=== PATIENT | male | born 1935 | race Caucasian/White ===

== ENCOUNTER 2016-11-03 20:26 | Inpatient (IN) | payer OTHER ==
--- NOTE | 2016-11-03 20:31 | EDPHY ---
H & P HPI/ROS: CHIEF COMPLAINT: Shortness of breath. HISTORY OF PRESENT ILLNESS: The patient is an 81 year old male, brought in by EMS, presenting with shortness of breath for past 4 days. The patient was diagnosed with atrial fibrillation today. He believes he went into atrial fibrillation 4 days ago and has since had shortness of breath. Around 4pm today the patient developed moderate chest discomfort. This pain is localized in the epigastrium and lower left chest. The pain is worse with deep inhalation. Associated with a dry cough. 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 He is on oxygen 2l NC at night. He is not on anticoagulants. Additionally, the patient's notes the patient has been more fatigued than usual over the past 6 weeks. REVIEW OF SYSTEMS: A comprehensive 10 point review of systems is otherwise negative aside from elements mentioned in the history of present illness. Past Medical/Surgical History: DVT, Gout, Anal fistula, Atrial fibrillation. 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 Physical Exam: General Appearance: Alert, pleasant Eyes: Pupils equal and round, no conjunctival pallor or injection ENT, Mouth: Mucous membranes moist Neck: Normal inspection Respiratory: Lungs are clear to auscultation Cardiovascular: Irregularly irregular rate and rhythm Gastrointestinal: Epigastric tenderness and tenderness to left lower anterior ribs Neurological: A&O, nonfocal exam Skin: Warm and dry Extremities: Nontender, no pedal edema Psychiatric: Mood and affect normal Constitutional: Initial Vital Signs Temperature (C) 37.2 C 11/03/16 20:39 Heart Rate 105 H 11/03/16 20:39 Respiratory Rate 16 11/03/16 20:39 Blood Pressure 136/105 H 11/03/16 20:39 O2 Sat (%) 92 11/03/16 20:39 O2 Delivery Mode Nasal Cannula O2 (L/minute) 2 Allergies/Adverse Reactions: loperamide HCl [From Imodium A-D] Allergy (Verified 08/10/16 14:02) Rash onions Allergy (Uncoded 11/03/16 20:38) Home Medications: Medication Instructions Recorded Acetaminophen [Tylenol ES 500 mg 500 mg PO BID 10/28/14 (*)] Psyllium Husk (with Sugar) 1 each PO BID 10/28/14 [Metamucil Packet] Clotrimazole [Mycelex (*)] 10 mg PO 5XD 11/04/16 Herbals/Supplements -Info Only 1 ea PO DAILY 11/04/16 Metoprolol Tartrate [Lopressor 25 12.5 mg PO BID #60 tab 11/06/16 mg (*)] Rivaroxaban [Xarelto 15mg (*)] 15 mg PO BIDMEAL #40 tab 11/06/16 Medical Decision Making - Diagnostics EKG Interpretation: The 12 lead EKG was interpreted by myself. See hard copy and/or "tracemaster" electronic copy for interpretation: Atrial fibrillation, rate 107, no ST/T changes ED Course/Re-evaluation: The patient was brought in by EMS with shortness of breath. The patient was diagnosed with atrial fibrillation today. He has been in atrial fibrillation for the past 4 days and has since been short of breath. The patient is more fatigued than usual. Around 4pm he developed some chest discomfort that is worse with deep inhalation. On exam the patient has epigastric tenderness and left anterior rib tenderness. The patient received 324mg Aspirin PO. HR is ranging between 100 and 125. He received 10mg Diltiazem IV and HR went down to the 90s. The patient has a history of DVT. Plan to check D-dimer, BMP, and BNP. Chest x-ray was ordered. Troponin is pending. X-ray of the chest was obtained. I viewed the images myself on the PACS system. Results: Left lower lobe infiltrate. D-dimer is elevated at 10.43. Plan for CT chest to look for PE. Study: CT of the chest was obtained. I viewed the images myself on the PACS system. See the full radiology report in the imaging section. CT reveals bilateral moderate PE. No pneumonia. Heparin per weight base protocol ordered. Plan to admit. 10:05 p.m. HR has remained in the upper 90s after IV Diltiazem. Will start Diltiazem drip for HR greater than 110. Dr. Joe consulted for admission. The pt remained stable throughout his ED stay. Critical care time of 35 minutes by me exclusive of unbundled procedures. Organs at risk: heart and lung Differential Diagnosis: includes though not limited to pneumonia, ACS, PTX, empyema, pulmonary edema - Data Points Laboratory Results: Laboratory Results 11/04/16 04:10 11/04/16 04:10 Microbiology Results: MICROBIOLOGY 11/03/16 21:55 Blood Blood Culture - Preliminary 11/03/16 21:30 Blood Blood Culture - Preliminary Medications Given: Discontinued Medications Acetaminophen (Tylenol) 650 mg PO Q4HRS PRN PRN Reason: Pain, Mild/Fever, Can Take PO Stop: 05/03/17 00:33 Last Admin: 11/06/16 08:40 Dose: 650 mg Aspirin (Aspirin) 324 mg PO EDNOW ONE Stop: 11/03/16 21:16 Last Admin: 11/03/16 21:35 Dose: 324 mg Clotrimazole (Mycelex) 10 mg PO 5XD RAUL PRN Reason: Protocol Stop: 12/04/16 13:59 Last Admin: 11/06/16 08:42 Dose: 10 mg Diltiazem HCl (Cardizem 25 Mg/5 Ml Vial) 10 mg IVP EDNOW ONE Stop: 11/03/16 21:15 Last Admin: 11/03/16 21:30 Dose: 10 mg Enoxaparin Sodium (Lovenox) 110 mg SC BID [facility] Stop: 05/03/17 10:29 Last Admin: 11/05/16 10:23 Dose: Not Given Heparin Sodium (Porcine) (Heparin Injection) 0 unit IVP EDNOW ONE PRN Reason: Protocol Stop: 11/03/16 22:05 Last Admin: 11/03/16 22:32 Dose: 6,700 units Diltiazem HCl 125 mg/ Dextrose 125 mls @ 0 mls/hr IV EDNOW ONE; As Directed PRN Reason: Protocol Stop: 11/03/16 21:15 Last Admin: 11/03/16 22:09 Dose: Not Given Levofloxacin/Dextrose (Levaquin 750 Mg (Premix)) 150 mls @ 100 mls/hr IV EDNOW ONE PRN Reason: Protocol Stop: 11/03/16 22:45 Last Admin: 11/03/16 22:02 Dose: Not Given Heparin Sodium (Porcine) (Heparin 50 Units/Ml (Premix)) 500 mls @ 0 mls/hr IV EDNOW ONE; Per Protocol PRN Reason: Protocol Stop: 11/03/16 22:05 Last Admin: 11/03/16 22:33 Dose: 500 mls Metoprolol Tartrate (Lopressor) 12.5 mg PO BID [facility] Stop: 05/03/17 10:29 Last Admin: 11/06/16 08:41 Dose: 12.5 mg Psyllium Hydrophilic Mucilloid (Metamucil/Konsyl) 1 each PO BID [facility] Stop: 05/03/17 20:59 Last Admin: 11/06/16 09:12 Dose: Not Given Rivaroxaban (Xarelto) 15 mg PO BIDMEAL [facility] Stop: 05/04/17 09:19 Last Admin: 11/06/16 08:43 Dose: 15 mg Departure - Departure Disposition: [facility] Inpatient Acute Clinical Impression: Rapid atrial fibrillation Pulmonary emboli Qualifiers: Pulmonary embolism type: other Chronicity: acute Acute cor pulmonale presence: without acute cor pulmonale Qualified Code(s): I26.99 - Other pulmonary embolism without acute cor pulmonale Condition: Serious Report Scribed for: Sarah Cutler Report Scribed by: Dona Berkowitz Date of Report: 11/03/16 Time of Report: 20:31 Physician Review and Approval Statement: 11/03/16 20:31 Portions of this note were transcribed by a medical billing and coding instructor. I personally performed the history, physical exam, and medical decision-making; and confirmed the accuracy of the information in the transcribed note.
--- NOTE | 2016-11-03 20:38 | CPEKG ---
Heart Rate: 107 RR Interval: 561 QRSD Interval: 86 QT Interval: 340 QTC Interval: 454 QRS [place]: 27 T Wave [place]: 39 EKG Severity - ABNORMAL ECG - EKG Impression: ATRIAL FIBRILLATION, V-RATE 82-142 Electronically Signed By: Arben Skinner 04-Nov-2016 09:03:01
[2016-11-03 20:47] LABS: % IMMATURE GRANULYOCYTES 0.9 % (0.0-1.1); ABSOLUTE IMMATURE GRANULOCYTES 0.11 10^3/uL (0.00-0.10); ADD DIFF? NO; ADD MORPH? NO; ADD SCAN? NO; ATYPICAL LYMPHOCYTE FLAG 10 (0-99); FRAGMENT RBC FLAG 0 (0-99); HEMATOCRIT 48.9 % (40.0-51.0); HEMOGLOBIN 16.3 g/dL (13.7-17.5); LEFT SHIFT FLG 0 (0-99); LIPEMIA HEMOLYSIS FLAG 80 (0-99); MEAN CELL HEMOGLOBIN 30.8 pg (27.9-34.1); MEAN CELL HEMOGLOBIN CONCENTR. 33.3 g/dL (32.4-36.7); MEAN CELL VOLUME 92.3 fL (81.5-99.8); PLATELET CLUMPS FLAG 0 (0-99); PLATELET COUNT 188 10^3/uL (150-400); RED CELL DISTRIBUTION WIDTH 13.8 % (11.5-15.2)
[2016-11-03 21:01] LABS: ANION GAP 13 mEq/L (8-16); CALCIUM 9.7 mg/dL (8.5-10.4); CARBON DIOXIDE 25 mEq/l (22-31); CHLORIDE 99 mEq/L (97-110); CREATININE 0.9 mg/dL (0.7-1.3); GLOMERULAR FILTRATION RATE > 60; GLUCOSE 129 mg/dL (70-100); SODIUM 137 mEq/L (134-144)
[2016-11-03 21:13] LABS: TROPONIN I < 0.012 ng/mL (0-0.034)
[2016-11-03] MEDS ORDERED: DILTIAZEM 25 MG/5 ML VIAL IVP ONE (21:14)
[2016-11-03] MEDS ORDERED: DILTIAZEM 125 MG in D5W 125 ML IV ONE (21:14)
[2016-11-03] MEDS ORDERED: ASPIRIN 81 MG CHEWABLE TAB PO ONE (21:15)
[2016-11-03] MEDS ORDERED: IOPAMIDOL (ISOVUE 370) 100 ML BTL IV ONE (21:31)
[2016-11-03] MEDS ORDERED: HEPARIN 10,000 UNIT/10 ML MDV IVP ONE (22:04)
[2016-11-03] MEDS ORDERED: HEPARIN/DEXTROSE 500 ML IV ONE (22:04)
[2016-11-03 22:05] LABS: INR 1.32 (0.83-1.16); PROTIME(PATIENT) 16.4 SEC (12.0-15.0)
[2016-11-03 22:06] LABS: APTT 40.2 SEC (23.0-38.0)
[2016-11-03 22:12] LABS: BILIRUBIN,TOTAL 1.3 mg/dL (0.1-1.4)
[2016-11-04] MEDS ORDERED: oxyCODONE IR 5 MG TAB PO PRN (00:34)
[2016-11-04] MEDS ORDERED: ONDANSETRON DISINTEGRATING 4 MG TAB PO PRN (00:34)
[2016-11-04] MEDS ORDERED: ONDANSETRON 4 MG/2 ML VIAL IVP PRN (00:34)
[2016-11-04] MEDS ORDERED: HEPARIN 10,000 UNIT/10 ML MDV IVP PRN (00:38)
[2016-11-04] MEDS ORDERED: HEPARIN/DEXTROSE 500 ML IV SCH (01:00)
--- NOTE | 2016-11-04 03:25 | PDGENHP ---
History and Physical - Chief Complaint shortness of breath - History of Present Illness Patient is an 81-year-old male with history TALIB ITP and gout and previous history of DVT after right hip replacement (no longer on anticoagulation) who presents the ED with complaint of shortness of breath and chest pain. Patient states shortness of breath started about 4 days ago, was sudden onset, not associated with significant cough or congestion. His sensation of dyspnea progressed over the following days, became associated with generalized fatigue and on day of presentation patient developed pleuritic epigastric/left-sided chest pain. In addition patient noted palpitations throughout his symptom onset , not associated with headache, dizziness or lightheadedness. On arrival to the ED patient was noted to be tachycardic and hypoxic, with stable BP. EKG revealed AFib, new. Labs revealed mild leukocytosis, negative troponin, significantly elevated D-dimer. Chest x-ray showed possible left lower lobe pneumonia versus infiltrate, so patient was cultured initiated on antibiotics. CT angio was then obtained and showed moderate volume bilateral pulmonary emboli. Patient was initiated on heparin drip and admitted to the hospitalist service for further management. History Information - Allergies/Home Medication List Allergies/Adverse Reactions: loperamide HCl [From Imodium A-D] Allergy (Verified 08/10/16 14:02) Rash onions Allergy (Uncoded 11/03/16 20:38) Home Medications: Heparin 10/28/14 [Last Taken Unknown] Tylenol 10/28/14 [Last Taken Unknown] I have personally reviewed and updated: family history, medical history, social history, surgical history - Past Medical History Additional medical history: TALIB with chronic respiratory failure at night. Macular degeneration. Previous history of ITP. Gout. 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 Lives with his , uses a cane for ambulation. Review of Systems ROS: 10pt was reviewed & negative except for what was stated in HPI & below Physical Exam Temp Pulse Resp BP Pulse Ox 36.8 C 110 H 20 127/65 H 92 11/03/16 23:02 11/03/16 23:02 11/03/16 23:02 11/03/16 23:02 11/03/16 23:02 O2 (L/minute) 2 Constitutional: no apparent distress, appears nourished, not in pain Eyes: PERRL, anicteric sclera, EOMI Ears, Nose, Mouth, Throat: moist mucous membranes, hearing normal, ears appear normal, no oral mucosal ulcers Cardiovascular: irregularly irregular, pulses symmetric bilaterally, tachycardia , edema (Asymmetric right lower extremity), No JVD Peripheral Pulses: 2+: dorsalis-pedis (R), dorsalis-pedis (L) Respiratory: no respiratory distress, no rales or rhonchi, clear to auscultation Gastrointestinal: normoactive bowel sounds, soft, non-tender abdomen, no palpable masses, No guarding, No rebound, No distension Genitourinary: no bladder fullness, no bladder tenderness Skin: warm, normal color, no rashes or abrasions, no fluctuance, No mottled Musculoskeletal: full muscle strength, no muscle tenderness, normal joint ROM, no joint effusions Neurologic: AAOx3, sensation intact bilaterally, CN II-XII Intact, No weakness, No numbness, No facial droop Psychiatric: interacting appropriately, not anxious, not encephalopathic, thought process linear Lab Data & Imaging Review 11/03/16 20:30 11/03/16 20:30 WBC 12.88 10^3/uL (3.80-9.50) H 11/03/16 20:30 RBC 5.30 10^6/uL (4.40-6.38) 11/03/16 20:30 Hgb 16.3 g/dL (13.7-17.5) 11/03/16 20:30 Hct 48.9 % (40.0-51.0) 11/03/16 20:30 MCV 92.3 fL (81.5-99.8) 11/03/16 20:30 MCH 30.8 pg (27.9-34.1) 11/03/16 20:30 MCHC 33.3 g/dL (32.4-36.7) 11/03/16 20:30 RDW 13.8 % (11.5-15.2) 11/03/16 20:30 Plt Count 188 10^3/uL (150-400) 11/03/16 20:30 MPV 12.0 fL (8.7-11.7) H 11/03/16 20:30 Neut % (Auto) 70.3 % (39.3-74.2) 11/03/16 20:30 Lymph % (Auto) 19.6 % (15.0-45.0) 11/03/16 20:30 [place] % (Auto) 7.9 % (4.5-13.0) 11/03/16 20:30 Eos % (Auto) 1.0 % (0.6-7.6) 11/03/16 20:30 Baso % (Auto) 0.3 % (0.3-1.7) 11/03/16 20:30 Nucleat RBC Rel Count 0.0 % (0.0-0.2) 11/03/16 20:30 Absolute Neuts (auto) 9.06 10^3/uL (1.70-6.50) H 11/03/16 20:30 Absolute Lymphs (auto) 2.52 10^3/uL (1.00-3.00) 11/03/16 20:30 Absolute Monos (auto) 1.02 10^3/uL (0.30-0.80) H 11/03/16 20:30 Absolute Eos (auto) 0.13 10^3/uL (0.03-0.40) 11/03/16 20:30 Absolute Basos (auto) 0.04 10^3/uL (0.02-0.10) 11/03/16 20:30 Absolute Nucleated RBC 0.00 10^3/uL (0-0.01) 11/03/16 20:30 Immature Gran % 0.9 % (0.0-1.1) 11/03/16 20:30 Immature Gran # 0.11 10^3/uL (0.00-0.10) H 11/03/16 20:30 PT 16.4 SEC (12.0-15.0) H 11/03/16 20:30 INR 1.32 (0.83-1.16) H 11/03/16 20:30 APTT 40.2 SEC (23.0-38.0) H 11/03/16 20:30 D-Dimer 10.43 ug/mLFEU (0.00-0.50) H 11/03/16 20:30 VBG Lactic Acid 1.7 mmol/L (0.7-2.1) 11/03/16 23:19 Sodium 137 mEq/L (134-144) 11/03/16 20:30 Potassium 4.0 mEq/L (3.5-5.2) 11/03/16 20:30 Chloride 99 mEq/L (97-110) 11/03/16 20:30 Carbon Dioxide 25 mEq/l (22-31) 11/03/16 20:30 Anion Gap 13 mEq/L (8-16) 11/03/16 20:30 BUN 14 mg/dL (7-23) 11/03/16 20:30 Creatinine 0.9 mg/dL (0.7-1.3) 11/03/16 20:30 Estimated GFR > 60 11/03/16 20:30 Glucose 129 mg/dL (70-100) H 11/03/16 20:30 Calcium 9.7 mg/dL (8.5-10.4) 11/03/16 20:30 Total Bilirubin 1.3 mg/dL (0.1-1.4) 11/03/16 20:30 Troponin I < 0.012 ng/mL (0-0.034) 11/03/16 20:30 NT-Pro-B Natriuret Pep 873 pg/mL (0-450) H 11/03/16 20:30 Visualized and Interpreted Chest x-ray results: Yes Chest X-Ray results: infiltrate (Left lower lobe) Visualized and Interpreted imaging results: Yes Interpretation: CT angio: bilateral moderate volume pulmonary emboli, with likely LLL pulmonary infarct Visualized and Interpreted EKG results: Yes EKG additional interpertation: Afib without ischemic changes Assessment & Plan Assessment: Is an 81-year-old man with a history of previous DVT, who presents to the ED with acute onset shortness of breath and palpitations 4 days ago, ED workup reveals new onset AFib and bilateral acute pulmonary emboli. Plan: # acute pulmonary emboli Patient does not recall any provoking causes, but does have asymmetric RLE edema on exam. He was moderately tachycardic on presentation, but remains hemodynamically stable. CT angio shows moderate volume bilateral emboli without evidence of enlarged RV and negative initial troponin. O2 sats are also stable on 2L NC. Patient was initiated on heparin drip in ED and requests more time to assess coumadin vs NOACs for long-term anticoagulation. Will check TTE,continue to monitor troponins and check lower extremity dopplers to assess for source of embolism. # new onset afib Patient denies previous diagnosis of Afib. Possible provoked by pulmonary embolism. Rate has stabilized with one dose of Diltiazem 10 mg IVP. Will cont to monitor rate, if needed will start PO rate controlling meds. # leukocytosis Likely reactive in setting of acute PE, as patient denies any infectious symptoms. Will hold antibiotics and cont to monitor CBC. # Gout Patient is complaining of mild-mod L great toe pain and it does appear inflamed on exam. Will try to avoid NSAIDs given the initiation of systemic anticoagulation. Will treat pain with tylenol, consider adding prednisone or colchicine if needed acutely. # macular degeneration Stable. Cont home meds once confirmed. # dispo: admit to observation status # gen: Cardiac diet DVT ppx: on heparin gtt Full Code
[2016-11-04 04:31] LABS: COLOR YELLOW; LEUKOCYTE ESTERASE,URINE NEGATIVE (NEGATIVE); NITRITE,URINE NEGATIVE (NEGATIVE)
[2016-11-04 04:37] LABS: % IMMATURE GRANULYOCYTES 0.8 % (0.0-1.1); ADD DIFF? NO; ADD MORPH? NO; ADD SCAN? NO; ATYPICAL LYMPHOCYTE FLAG 10 (0-99); FRAGMENT RBC FLAG 0 (0-99); HEMATOCRIT 45.6 % (40.0-51.0); LEFT SHIFT FLG 0 (0-99); LIPEMIA HEMOLYSIS FLAG 80 (0-99); MEAN CELL HEMOGLOBIN 30.4 pg (27.9-34.1); MEAN CELL HEMOGLOBIN CONCENTR. 32.9 g/dL (32.4-36.7); MEAN CELL VOLUME 92.5 fL (81.5-99.8); PLATELET CLUMPS FLAG 20 (0-99); PLATELET COUNT 180 10^3/uL (150-400); RED BLOOD CELL COUNT 4.93 10^6/uL (4.40-6.38)
[2016-11-04 04:47] LABS: INR 1.55 (0.83-1.16); PROTIME(PATIENT) 18.6 SEC (12.0-15.0)
[2016-11-04 04:55] LABS: ANION GAP 12 mEq/L (8-16); CALCIUM 9.3 mg/dL (8.5-10.4); CARBON DIOXIDE 21 mEq/l (22-31); CHLORIDE 103 mEq/L (97-110); CREATININE 0.8 mg/dL (0.7-1.3); GLOMERULAR FILTRATION RATE > 60; GLUCOSE 110 mg/dL (70-100); POTASSIUM 4.2 mEq/L (3.5-5.2); SODIUM 136 mEq/L (134-144)
[2016-11-04 05:02] LABS: TROPONIN I < 0.012 ng/mL (0-0.034)
[2016-11-04 05:17] LABS: APTT 158.9 SEC (23.0-38.0)
--- NOTE | 2016-11-04 08:47 | CPEKG ---
Heart Rate: 102 RR Interval: 588 QRSD Interval: 84 QT Interval: 356 QTC Interval: 464 QRS [place]: 21 T Wave [place]: 18 EKG Severity - ABNORMAL ECG - EKG Impression: ATRIAL FIBRILLATION, V-RATE 81-129 EKG Impression: BORDERLINE T ABNORMALITIES, ANTERIOR LEADS Electronically Signed By: Arben Skinner 04-Nov-2016 09:03:15
[2016-11-04] MEDS: ACETAMINOPHEN 325 MG TAB PO PRN (09:09)
--- NOTE | 2016-11-04 10:22 | ECHO ---
[id number] + + [address] : : [place] [address] : : [phone] + + Adult Echocardiographic Report + -------+ :Name: SEGUNDO MOHR Edwin Date: 11/04/2016 08:03 AM : : Hospital Admission Number: [id number] Locati on: 217: :: 1935 Gender: Male Height: 73 in : :Age: 81 yrs Race: WH Weight: 245 lb : :Reason For Study: Eval LV/RV Function : : BSA: 2.3 meter s2 : :History: PE, Heart Strain : + -------+ MMode/2D Measurements \T\ Calculations IVSd: 0.89 cm RVDd: 5.2 cm FS: 46.6 % Ao root diam: 3.0 cm LVPWd: 1.0 cm LVIDd: 4.7 cm EDV(Teich): 102.1 ml ACS: 0.81 cm LVIDs: 2.5 cm ESV(Teich): 22.4 ml EF(Teich): 78.0 % Normal Measurement Values: + + :LVIDd (3.5-5.7cm) IVSd (0.6-1.1cm) LVPWd (0.6-1.1cm) Aortic Root (2.0-3.7cm)Left Atrium (1.5-4.0cm): :LV Vol(d) (76-115ml) LV Vol(s) (29-48ml) Ejec Fraction (50-65%)PV Yung (0.6- 1.2m/s) TV Yung (0.4-1.0m/s) : :MV E Yung (0.8-1.0m/s)MV A Yung (0.3-1.0m/s)LVOT Yung (0.7-1.2m/s) Asc Ao Yung ( 0.9-1.8m/s) : + + Doppler Measurements \T\ Calculations MV E max yung: Ao V2 max: LV V1 max: PA V2 max: 81.4 cm/sec 107.2 cm/sec 78.0 cm/sec 99.1 cm/sec Ao max P.6 mmHgLV V1 max PG: PA max P.4 mmHg 3.9 mmHg PI end-d yung: TR max yung: 123.5 cm/sec 335.3 cm/sec TR max P.0 mmHg RAP systole: 5.0 mmHg RVSP(TR): 50.0 mmHg Left Ventricle The left ventricle is normal in size. There is normal left ventricular wall thickness. The left ventricular ejection fraction is normal. The thythm is atrial fibrillation. The left ventricular wall motion is normal. Right Ventricle The right ventricle is mildly dilated. The right ventricular systolic function is mildly reduced. Atria The left atrial size is normal. Right atrial size is normal. Mitral Valve The mitral valve is normal in structure and function. There is no evidence of mitral valve prolapse. There is no mitral valve stenosis. There is trace mitral regurgitation. Tricuspid Valve There is mild tricuspid regurgitation. Right ventricular systolic pressure is 50mmHg. There is Doppler evidence for moderate pulmonary hypertension. Aortic Valve The aortic valve is trileaflet. There is mild aortic valve calcification. There is no aortic stenosis. There is no aortic insufficiency. Pulmonic Valve The pulmonic valve is normal in structure and function. Trace pulmonic valvular regurgitation. Great Vessels The aortic root is normal size. Pericardium/Pleural There is no pericardial effusion. Conclusion A complete two-dimensional transthoracic echocardiogram was performed (2D, M-mode, Doppler and color flow Doppler). The thythm is atrial fibrillation. The left ventricular ejection fraction is normal. The left ventricular wall motion is normal. The right ventricle is mildly dilated. RV systolic function is mildly reduced The left atrial size is normal. Right atrial size is normal. The mitral valve is normal in structure and function. There is trace mitral regurgitation. There is mild tricuspid regurgitation. Right ventricular systolic pressure is 50mmHg. There is Doppler evidence for moderate pulmonary hypertension. The aortic valve is trileaflet. There is mild aortic valve calcification. There is no aortic insufficiency. Trace pulmonic valvular regurgitation. There is no pericardial effusion. No prior echo Final Reading Physician: Dr Brittny Miller electronically signed on 11/04/2016 10:20 AM Ordering Physician: Kacey Joe Performed By: Terence Hager, BELLCS
--- NOTE | 2016-11-04 10:24 | HOSPPROG ---
Hospitalist Progress Note Assessment/Plan: # acute PE - heparin gtt, change to lovenox today - son is heme/onc MD and flying in today - would likely prefer NOAC - echo pending # a-fib - new dx, d/t PE - AC as above - low dose metop - he may convert with tx of PE, if not consider cardiac consult for ? cardioversion # abd pain - epigastric - does not seem related to PE - check CT abd - may be a ventral hernia # gout - not terribly acute, follow # hx ITP, decades ago - treated with steroids - follow plts on AC # FCFT ## chart reviewed CT personally reviewed Subjective: ongoing abd pain; L chest pain better Objective: Vital Signs Temp Pulse Resp BP Pulse Ox 36.6 C 93 21 H 125/77 H 97 11/04/16 08:41 11/04/16 08:41 11/04/16 08:41 11/04/16 08:41 11/04/16 08:41 Laboratory Results 11/04/16 04:10 11/04/16 04:10 11/03/16 11/04/16 11/05/16 05:59 05:59 05:59 Intake Total 485 200 Output Total 225 Balance 260 200 PT 18.6 SEC (12.0-15.0) H 11/04/16 04:16 INR 1.55 (0.83-1.16) H 11/04/16 04:16 - Physical Exam Constitutional: no apparent distress, appears nourished Cardiovascular: regular rate and rhythym, no murmur, rub, or gallop Respiratory: no respiratory distress, no rales or rhonchi, clear to auscultation Gastrointestinal: normoactive bowel sounds, other (TTP epigastic, no masses appreciated, no guarding) ICD10 Worksheet Patient Problems: Problems Problem Status Onset Pulmonary emboli Acute Rapid atrial fibrillation Acute
[2016-11-04] MEDS: METOPROLOL TARTRATE 25 MG TAB PO SCH ×2 (12:11→20:12)
[2016-11-04] MEDS: ENOXAPARIN 120 MG/0.8 ML SYR SC SCH ×2 (12:11→20:13)
[2016-11-04] MEDS: CLOTRIMAZOLE 10 MG TROCHE PO SCH ×3 (18:37→20:14)
[2016-11-04] MEDS: PSYLLIUM METAMUCIL 1 PKT PO SCH (20:13)
[2016-11-05] MEDS: ACETAMINOPHEN 325 MG TAB PO PRN ×3 (03:59→19:31)
[2016-11-05 04:47] LABS: % IMMATURE GRANULYOCYTES 0.5 % (0.0-1.1); ABSOLUTE IMMATURE GRANULOCYTES 0.07 10^3/uL (0.00-0.10); ADD DIFF? NO; ADD MORPH? NO; ADD SCAN? NO; ATYPICAL LYMPHOCYTE FLAG 0 (0-99); FRAGMENT RBC FLAG 0 (0-99); HEMATOCRIT 43.3 % (40.0-51.0); HEMOGLOBIN 14.5 g/dL (13.7-17.5); LEFT SHIFT FLG 0 (0-99); LIPEMIA HEMOLYSIS FLAG 80 (0-99); MEAN CELL HEMOGLOBIN 30.6 pg (27.9-34.1); MEAN CELL HEMOGLOBIN CONCENTR. 33.5 g/dL (32.4-36.7); MEAN CELL VOLUME 91.4 fL (81.5-99.8); MEAN PLATELET VOLUME 11.8 fL (8.7-11.7); PLATELET CLUMPS FLAG 10 (0-99); PLATELET COUNT 184 10^3/uL (150-400); RED BLOOD CELL COUNT 4.74 10^6/uL (4.40-6.38)
[2016-11-05 04:57] LABS: ALANINE AMINOTRANSFERASE 39 IU/L (21-72); ALBUMIN 3.5 g/dL (3.5-5.0); ALKALINE PHOSPHATASE 72 IU/L (38-126); ANION GAP 12 mEq/L (8-16); ASPARTATE AMINOTRANSFERASE 27 IU/L (17-59); BILIRUBIN,TOTAL 1.6 mg/dL (0.1-1.4); CARBON DIOXIDE 21 mEq/l (22-31); CHLORIDE 102 mEq/L (97-110); CREATININE 0.7 mg/dL (0.7-1.3); GLOMERULAR FILTRATION RATE > 60; GLUCOSE 135 mg/dL (70-100); SODIUM 135 mEq/L (134-144); TOTAL PROTEIN 7.1 g/dL (6.3-8.2)
[2016-11-05] MEDS: CLOTRIMAZOLE 10 MG TROCHE PO SCH ×5 (06:02→21:18)
--- NOTE | 2016-11-05 09:22 | HOSPPROG ---
Hospitalist Progress Note Assessment/Plan: 81 y/o male new to my care today with: # acute PE - start xarelto today # a-fib - new dx, d/t PE vs chronic (rate controlled) - AC as above - continue low dose metop - I discussed the case with Dr. Miller who will see him in consultation later today # abd pain (improving) - check CT abd reviewed showing periumbilical subq edema ? d/t lovenox? # gout - not terribly acute, follow # hx ITP, decades ago - treated with steroids - follow plts on AC # FCFT ## chart reviewed dispo: likely dc 11/06 if continues to improve Subjective: improving sob. no palpitations. improving abd pain. not feeling well enough to dc home today Objective: Vital Signs Temp Pulse Resp BP Pulse Ox 36.6 C 94 20 110/75 94 11/05/16 07:06 11/05/16 07:06 11/05/16 07:06 11/05/16 07:06 11/05/16 07:06 Laboratory Results 11/05/16 04:16 11/05/16 04:16 11/04/16 11/05/16 11/06/16 05:59 05:59 05:59 Intake Total 1130 Output Total 875 Balance 255 PT 18.6 SEC (12.0-15.0) H 11/04/16 04:16 INR 1.55 (0.83-1.16) H 11/04/16 04:16 - Physical Exam Constitutional: no apparent distress, appears nourished, not in pain Cardiovascular: no murmur, rub, or gallop, irregularly irregular, No edema Respiratory: no respiratory distress, no rales or rhonchi, clear to auscultation , No rhonchi Gastrointestinal: normoactive bowel sounds, soft, non-tender abdomen, no palpable masses, other (periumbilical edema not reducible), No guarding, No rebound Neurologic: AAOx3, sensation intact bilaterally, CN II-XII Intact, No facial droop ICD10 Worksheet Patient Problems: Problems Problem Status Onset Pulmonary emboli Acute Rapid atrial fibrillation Acute
[2016-11-05] MEDS: METOPROLOL TARTRATE 25 MG TAB PO SCH ×2 (09:30→21:18)
[2016-11-05] MEDS: PSYLLIUM METAMUCIL 1 PKT PO SCH ×2 (09:31→19:39)
[2016-11-05] MEDS: RIVAROXABAN 15 MG TAB PO SCH ×2 (10:22→17:33)
[2016-11-05] MEDS: ENOXAPARIN 120 MG/0.8 ML SYR SC SCH (10:23)
--- NOTE | 2016-11-05 14:14 | GCON ---
[f rep st] CONSULTATION CARDIOLOGY CONSULTATION DATE OF CONSULTATION: 11/05/2016 CHIEF COMPLAINT: Atrial fibrillation. HISTORY OF PRESENT ILLNESS: We were asked by Dr. Philippe to visit with the patient. The patient is a pleasant 81-year-old male with no prior known cardiac history other than possible TIA in the past. He has never been told about any sort of arrhythmia. He has no coronary disease or any history of heart failure. He does have a history of previous DVT after hip replacement therapy. He was admitted to the hospital on November 03 with dyspnea and pleuritic chest pain. He was found to have moderate volume pulmonary emboli and has been started on Xarelto. He was found to have a righ t popliteal vein DVT. Upon admission, he was noted to be in atrial fibrillation. Upon my evaluation today, he states he is still mildly dyspneic but overall feels quite a bit better . He has not had anginal quality chest pain. He denies a history of presyncope or syncope. He mak s not notice palpitations. He did not appreciate any lower extremity swelling prior to his admissio n. He is having ongoing issues with abdominal pain during his hospital stay. ALLERGIES: Loperamide. PAST MEDICAL HISTORY: 1. New diagnosis paroxysmal atrial fibrillation, unknown duration. 2. Possible TIA in the past. 3. Sleep apnea. 4. Pulmonary nodules. 5. 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 6. Gout. 7. ITP. 8. Macular degeneration. 9. Status post hip replacement. MEDICATIONS: Tylenol, clotrimazole, herbal supplements, psyllium, and Metamucil. 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 He does not smoke cigarettes or drink alc ohol. FAMILY HISTORY: Both parents lived into their old age. PHYSICAL EXAM: VITAL SIGNS: Blood pressure 124/82, heart rate 82, oxygen saturation 94% on 2 L, af ebrile. GENERAL: Well-appearing older male in no acute distress. HEENT: Sclerae are clear and fr ee of jaundice. Mucous members are moist. CARDIOVASCULAR: JVP less than 10. Irregularly irregula r rhythm. No murmur. No S3. LUNGS: Clear to auscultation bilaterally without wheezes, rhonchi, o r rales. ABDOMEN: Soft but diffusely tender, and more tender in the right upper quadrant and periu mbilical region. No obvious masses. No obvious bruit. EXTREMITIES: Warm and well perfused with t race bilateral ankle edema. He does have varicose veins and stigmata of chronic venous insufficienc y in the right lower extremity. NEURO: Alert and oriented x3 without gross focal neurological defi cits. LABORATORY TESTS: White count 13, hematocrit 43, and platelets are 184. INR 1.5 on this admission. D-dimer was 10.4. Venous lactic acid was 1.7 upon admission. Sodium 135, potassium 4.0, chloride 102, bicarb 21, BUN 12, creatinine 0.7, glucose 135. Troponin negative x2. BNP 873. TSH is oswaldo l. Urinalysis with 1+ blood and only 1-3 red cells. EKG reviewed by me shows rate controlled atrial fibrillation with minimal lateral ST depression. Chest x-ray reviewed by me shows an infiltrate in the left lower lobe. Chest CT shows moderate volume PE. Echocardiogram reviewed by me: Normal LV size and systolic function. No LV wall motion abnormaliti es. The right ventricle is mildly dilated. RV systolic function is mildly reduced. Mild tricuspid regurgitation with an estimated PA pressure of 50. ASSESSMENT AND PLAN: An 81-year-old male with new diagnosis of atrial fibrillation in the setting o f pulmonary emboli. The duration of his atrial fibrillation is not known. He is not in heart failu re. No evidence of cardiac ischemia. TSH normal. His atrial fibrillation may have been triggered by his pulmonary embolism. 1. Atrial fibrillation: Rate controlled on low-dose metoprolol. He is on Xarelto for his PE. Cou ld consider outpatient cardioversion once he has been appropriately anticoagulated for 4-6 weeks. H e can follow up in our office in 2 weeks to discuss. No indication for acute cardioversion at this time. 2. Pulmonary embolism: This may have been related to a DVT on the same side as his previous DVT an d then ultimately PE. He is appropriately anticoagulated. He does have some mild RV strain on echo . He also has moderate pulmonary hypertension. Hopefully these parameters will improve. Could con dean of girls a repeat echocardiogram in 6 months. 3. Sleep apnea: He states that he is on nocturnal oxygen therapy. It would be worth a reevaluatio n of his sleep-disordered breathing as an outpatient, as under treated sleep-disordered breathing ca n contribute to atrial fibrillation. 4. History of ITP: Platelets are currently normal. Thank you for allowing us to participate in the patient's care. We will sign off for now as he is o n appropriate medical therapy and no further cardiac interventions are planned for this admission. Follow up as detailed above. /[id number]/MODL
[2016-11-06 04:12] VITALS: TEMP 99.4
[2016-11-06] MEDS: CLOTRIMAZOLE 10 MG TROCHE PO SCH ×2 (06:07→08:42)
[2016-11-06] MEDS: ACETAMINOPHEN 325 MG TAB PO PRN (08:40)
[2016-11-06] MEDS: METOPROLOL TARTRATE 25 MG TAB PO SCH (08:41)
[2016-11-06] MEDS: RIVAROXABAN 15 MG TAB PO SCH (08:43)
[2016-11-06] MEDS: PSYLLIUM METAMUCIL 1 PKT PO SCH (09:12)
[2016-11-06 10:02] VITALS: BP 129/89; PULSE 103; RESP 20; O2SAT 93
--- NOTE | 2016-11-06 10:15 | GDS ---
[f rep st] DISCHARGE SUMMARY DISCHARGE DIAGNOSES: 1. Acute pulmonary embolism. 2. Newly diagnosed atrial fibrillation. 3. Improving abdominal pain. 4. Gout. 5. History of ITP. CONSULTANTS: Dr. Brittny Miller, [facility]. HOSPITAL COURSE BY PROBLEM: Acute pulmonary embolism: Patient presented to the hospital on 017 with shortness of breath. His shortness of breath started 4 days prior to presentation. CT ang io of the chest on admission revealed moderate volume bilateral pulmonary emboli with consolidation of the left base. He was initially started on IV unfractionated heparin and was transitioned to low molecular weight heparin. On the morning of 11/05/2016, low-molecular weight heparin was stopped a nd he was started on Xarelto. Prior to starting Xarelto, the risks and benefits of the w as explained to the patient. The patient understands that Xarelto does not have a reversibility age nt but would still like to proceed with treatment due to convenience and effectiveness. On day of discharge, the patient states his breathing is near baseline. He is continuing to have so me abdominal pain. A CT of the abdomen was done on the sixth that revealed a left periumbilical sub cutaneous area of edema which I suspect was due to a Lovenox injection. On day of discharge, he con tinues to have some nonspecific abdominal pain but he is tolerating a regular diet and is moving his bowels. His H and H are currently pending at the time of discharge. Atrial fibrillation: The patient presented to the hospital in atrial fibrillation which I am not christina re if it is new or not since the patient appears to be asymptomatic. An echocardiogram done on the sixth demonstrates a normal left ventricular ejection fraction. There is evidence for elevated righ t ventricular systolic pressures of 50 mmHg with Doppler evidence for moderate pulmonary hypertensio n. The patient was seen by Dr. Miller from [facility]. Did not recommend cardioversion. S he is in agreement with low-dose metoprolol that was started as well as anticoagulation. He should be seen in followup at [facility]. PHYSICAL EXAMINATION ON DAY OF DISCHARGE: VITAL SIGNS: Blood pressure 115/65, pulse of 88, respira tory rate 19, O2 saturation 97% on room air. Temperature afebrile. GENERAL: No acute distress. H EART: S1, S2. LUNGS: Clear. ABDOMEN: Soft. There is no guarding or rebound tenderness. There is some superficial tenderness in the left upper and lower quadrants. No obvious masses. DIAGNOSTICS ON THIS HOSPITAL STAY: Echocardiogram done 11/04/2016, refer to report. CT angiogram o f the chest done 11/03/2016, refer to report. DISCHARGE MEDICATIONS: Please refer to discharge medication reconciliation in [facility] for full det ails. Below is a preliminary list. New medications on hospital discharge: Xarelto 15 mg p.o. twice daily to complete 21 days then to b e transitioned to 20 mg daily thereafter, metoprolol 12.5 mg p.o. twice daily. All other home medications were continued as usual home dosages. DISCHARGE INSTRUCTIONS: The patient will be discharged home where he was instructed to follow up wi th his primary care provider next week as well as with Dr. Miller from [facility] as rec ommended. He should seek medical attention if he has any signs of bleeding. He was also instructed to seek medical attention if his abdominal pain worsens. Greater than 30 minutes were spent on the discharge of this patient. /[id number]/MODL
[2016-11-06 10:24] LABS: HEMATOCRIT 43.2 % (40.0-51.0); HEMOGLOBIN 14.5 g/dL (13.7-17.5)
== END 2016-11-06 12:51 | disposition home or self-care (01) | DRG 176 ==
LOC: EDUNIT# → INTOOBSV 22:02 → F2W 22:49 → OBSVTOIN 11-04 10:25
PROVIDERS: ADMIT Internal Medicine; ATTEND Internal Medicine
DX: I26.99 Other pulmonary embolism without acute cor pulmonale (principal); I48.91 Unspecified atrial fibrillation; R10.13 Epigastric pain; G47.33 Obstructive sleep apnea (adult) (pediatric); M10.9 Gout, unspecified; H35.30 Unspecified macular degeneration; Z96.641 Presence of right artificial hip joint; Z86.718 Personal history of other venous thrombosis and embolism; Z99.81 Dependence on supplemental oxygen
CPT/HCPCS: 85520-90; 96374; 97162-GP; G0378; G8978-GP-CI; G8979-GP-CI; J1644; J1650; J1956; Q9967

== ENCOUNTER → 2018-04-20 | Outpatient (CLI) | payer OTHER | LOC: FCPNEURO 20:00 | PROVIDERS: ATTEND Psychiatry & Neurology Sleep Medicine | DX: G47.39 Other sleep apnea (principal) ==

== ENCOUNTER → 2018-08-17 | Outpatient (CLI) | payer OTHER | LOC: FIMAGING 09:17 | PROVIDERS: ATTEND Family Medicine | DX: R22.41 Localized swelling, mass and lump, right lower limb (principal) ==

== ENCOUNTER → 2018-08-30 | Outpatient (CLI) | payer OTHER | LOC: FCPNEURO 21:00 | PROVIDERS: ATTEND Psychiatry & Neurology Sleep Medicine | DX: G47.33 Obstructive sleep apnea (adult) (pediatric) (principal) ==